=== PATIENT | male | born 1975 | race Caucasian/White ===

== ENCOUNTER 2023-09-16 11:54 | Emergency (ER) | payer MEDICARE, SELFPAY ==
[2023-09-16 11:56] VITALS: BP 154/99
--- NOTE | 2023-09-16 13:17 | ED.GENMED ---
History of Present Illness
General
Chief Complaint: Abdominal Pain
Source: patient
Exam Limitations: none
Time Seen by Provider: 09/16/23 12:15
Travel History
Have you had any contact with someone who has COVID-19?: No
Do you have any symptoms of coronavirus? Fever > 100 degrees, chills, cough, shortness of breath, sore throat, loss of taste or smell, muscle aches, or headache?: No
History of Present Illness
History of Present Illness:
48-year-old male otherwise healthy presents complaining of persistent moderate left lower and right lower abdominal pain. Constant in nature dull achy in nature. Does not radiate to the back no associated urinary symptoms. He denies a fever or
vomiting. He has a history of diverticulitis. No other complaints at this time
Past History
Past History
ED Past Medical History: Other (Migraines) and Other (Depression, heroin abuse)
ED Past Surgical History: Appendectomy and Cholecystectomy
Social History
Tobacco: Smoker
Alcohol: None
Drug: Former user
Living: with family
Family History
Family History: Other (Alcoholism, gallstones)
Phy Exam
Physical Exam
Physical Exam:
General: Well-appearing male no acute respiratory distress HEENT: Normocephalic atraumatic heart: Regular rate and rhythm no murmurs
Abdomen: Soft tender to the left lower quadrant no guarding rebound normal bowel sounds nondistended
Extremities: No cyanosis or edema
Skin: Warm without rashes
Course
Orders/Labs/Results
Orders:
Orders
09/16/23 13:17
CT Abd/pelvis W Iv Cont Urgent
Comment:
Reason For Exam: lower abdominal pain
09/16/23 13:49
Complete Blood Count/With Diff Urgent
Comprehensive Metabolic Panel Urgent
Abnormal Lab Results
09/16/23
13:49
WBC 11.2 H 10^3/uL
(4.8-10.8)
Absolute Neuts (auto) 8.4 H 10^3/uL
(1.4-6.5)
Absolute Monos (auto) 1.2 H 10^3/uL
(0.1-0.6)
Lymphocytes % 11.8 L %
(20.5-51.1)
Monocytes % 10.4 H %
(1.7-9.3)
BUN 22 H mg/dl
(9-20)
Creatinine 0.6 L mg/dL
(0.7-1.3)
09/16/23 13:49
09/16/23 13:49
Vital Signs
Initial and Last Documented VS:
Initial Vital Signs
Temp Pulse Resp BP Pulse Ox
98.2 F 96 18 154/99 99
09/16/23 11:56 09/16/23 11:56 09/16/23 11:56 09/16/23 11:56 09/16/23 11:56
Last Documented Vital Signs
Temp Pulse Resp BP Pulse Ox
98.2 F 96 18 140/87 97
09/16/23 11:56 09/16/23 11:56 09/16/23 11:56 09/16/23 14:00 09/16/23 14:48
MDM/Problems Addressed
Differential Diagnosis Includes:
Abdominal pain. Consider diverticulitis versus constipation versus obstruction versus hernia
Will get labs. Check CT of the abdomen
*Critical Care Note
Total Time (30-74mins, 75-104mins- exclusive of procedures): Not Applicable
Update Note
Update Note:
CT demonstrates acute diverticulitis without evidence of abscess. Labs reviewed without significant finding. Will treat with Cipro and Flagyl. Advised to return for worsening symptoms. Stable for discharge otherwise
ED Attending Note
-
Portions of this chart may have been created with voice recognition software.� Occasional wrong word or��sound alike� substitutions may have occurred due to the inherent limitations of voice recognition software.
Discharge Plan
Departure
Patient Disposition: Home (Routine Discharge)
Date of Disposition: 09/16/23
Time of Disposition: 17:41
Patient with high blood pressure during this ER visit?: No
Discharge Problem:
Diverticulitis
Instructions: Diverticulitis (DC)
Prescriptions:
New
ciprofloxacin HCl [Cipro] 500 mg tablet
500 mg PO BID Qty: 14 0RF
metronidazole 500 mg tablet
500 mg PO Q8H 7 Days Qty: 21 0RF
No Action
smhvwsf-olnhhhcaqfsxs-snmeagod 1 TABLET tablet
1 tab PO PRN PRN (Reason: TUCKER)
cephalexin [Keflex] 500 MG capsule
500 mg PO Q6 Qty: 20 0RF
penicillin V potassium 500 MG tablet
500 mg PO Q6 Qty: 28 0RF
cephalexin 500 mg capsule
500 mg PO QID 10 Days Qty: 40 0RF
sulfamethoxazole-trimethoprim [Bactrim DS] 800-160 mg tablet
1 tab PO BID Qty: 20 0RF
sulfamethoxazole-trimethoprim [Bactrim DS] 800-160 mg tablet
1 tab PO BID Qty: 14 0RF
penicillin V potassium 500 mg tablet
500 mg PO QID 10 Days Qty: 40 0RF
diclofenac sodium 75 mg tablet,delayed release (DR/EC)
75 mg PO BID Qty: 10 0RF
Referrals:
NONE,* [Family Provider] -
Stand Alone Forms: Return to Work
Activity Restrictions/Additional Instructions:
Take antibiotics as directed. Drink plenty clear liquids initially and then advance to bland diet as tolerated peer return if worse otherwise follow-up with family doctor
Interventions
Interventions:
*Risk Screen - Suicide Last Done: 09/16/23 13:53
*General Assessment Last Done: 09/16/23 11:56
*Neglect/Abuse Screening Last Done: 09/16/23 13:53
*ED COVID-19 Vaccine History Last Done: 09/16/23 11:56
LN-Smawrk-Plbwcredoj Assessment Last Done: 09/16/23 13:53
[2023-09-16 13:51] VITALS: BP 157/101
[2023-09-16 13:57] VITALS: BMI 26.1
[2023-09-16 14:00] VITALS: BP 140/87
[2023-09-16 14:07] LABS: % Basophils 0.4 % (0-2); % Immature Granulocytes 0.3 % (0-0.5); % Lymphocytes 11.8 % (20.5-51.1); % Monocytes 10.4 % (1.7-9.3); % Neutrophils 75.1 % (42.2-75.2); Absolute Eosinophils 0.2 10^3/uL (0-0.7); Absolute Lymphocytes 1.3 10^3/uL (1.2-3.4); Absolute Monocytes 1.2 10^3/uL (0.1-0.6); Absolute Neutrophils 8.4 10^3/uL (1.4-6.5); Hematocrit 43.6 % (39.0-52.0); Hemoglobin 14.9 g/dL (13.0-18.0); Mean Corp Hgb Conc. 34.2 g/dL (33.0-37.0); Mean Corpuscular Hgb 28.8 pg (27.0-31.0); Mean Corpuscular Volume 84.2 fL (80.0-94.0); Mean Platelet Volume 9.7 fL (7.4-10.4); Nucleated Red Blood Cells % 0 % (-); Platelet Count 283 10^3/uL (130-400); Red Blood Cell Count 5.18 10^6/uL (4.70-6.10); Red Cell Dist. Width 12.6 % (11.5-14.5); White Blood Cell Count 11.2 10^3/uL (4.8-10.8)
[2023-09-16 14:24] LABS: ALT (SGPT) 41 U/L (0-50); AST (SGOT) 35 U/L (17-59); Albumin 4.5 g/dl (3.5-5.0); Alkaline Phosphatase 47 U/L (38-126); Blood Urea Nitrogen 22 mg/dl (9-20); Calcium 9.7 mg/dl (8.4-10.2); Carbon Dioxide 28 mmol/L (22-30); Chloride 101 mmol/L (98-107); Estimated Creatinine Clearance > 125 ml/min; Glucose 92 mg/dl (70-99); Potassium 4.5 mmol/L (3.5-5.1); Sodium 135 mmol/L (135-145); Total Protein 7.2 g/dl (6.3-8.2); eGFR > 60.00
[2023-09-16 17:58] VITALS: BP 130/90
== END 2023-09-16 17:59 | disposition home or self-care (01) ==
LOC: EMR 11:54
PROVIDERS: Physician Assistant; EMERGENCY PHYSICIAN Emergency Medicine
DX: K57.92 Diverticulitis of intestine, part unspecified, without perforation or abscess without bleeding (principal); F32.A Depression, unspecified; D72.829 Elevated white blood cell count, unspecified; F17.200 Nicotine dependence, unspecified, uncomplicated; Z90.49 Acquired absence of other specified parts of digestive tract
CPT/HCPCS: 99284; 74177; 80053; 85025; Q9967